=== PATIENT | female | born 1975 | race Two or more races ===

== ENCOUNTER 2019-07-02 17:50 | Emergency (ER) | payer MEDICARE, MEDICAID ==
[~2019-07-02] VITALS: Ht 170.2 cm; Wt 77.1 kg
[2019-07-02 17:49] VITALS: BP 124/79
[~2019-07-02 17:50] MED LIST: BACTRIM DS TAB1 EAC1 ORAL; IBUPROFEN600 MG ORAL; MOTRIN100 MG PO; NKM
--- NOTE | 2019-07-02 18:07 | Emergency Room Report ---
History of Present Illness General Chief Complaint: Upper Respiratory Illness Source: Patient Present Illness HPI 44-year-old female with no symptom past medical history here complaining of 4 days of cough and congestion and shortness of breath. Denies abdominal pain however complains of minor nausea. Denies diarrhea, headache and dizziness. Denies recent travel. Reports that she stopped working last Tuesday. Patient is a caregiver and works with elderly population. Is in no distress. Afebrile and oxygenation is are within normal limits. Denies at this time. Is sitting comfortably with stable vital signs. Allergies: Coded Allergies: No Known Allergies (Unverified , 04/18/12) COVID-19 Screening Contact w/high risk pt: No Recent Travel to affected area: No Experienced COVID-19 symptoms?: Yes COVID-19 symptoms experienced: Shortness of Breath, Cough Patient History Past Medical History: see triage record Past Surgical History: none Pertinent Family History: none Now: No Immunizations: UTD Reviewed Nursing Documentation: PMH: Agreed; PSxH: Agreed Nursing Documentation-PMH Past Medical History: No Stated History Hx Cardiac Problems: No Hx Hypertension: Yes Hx Cancer: No Hx Gastrointestinal Problems: No Hx Neurological Problems: No Review of Systems All Other Systems: negative except mentioned in HPI Physical Exam Vital Signs Date Time Temp Pulse Resp B/P (MAP) Pulse Ox O2 Delivery O2 Flow Rate FiO2 07/02/19 17:45 99.3 96 20 124/79 (94) 98 Room Air Sp02 EP Interpretation: reviewed, normal General Appearance: no apparent distress, alert, GCS 15, non-toxic Head: normocephalic, atraumatic Eyes: bilateral eye normal inspection, bilateral eye PERRL ENT: hearing grossly normal, normal pharynx, no angioedema, normal voice Neck: full range of motion, supple/symm/no masses Respiratory: chest non-tender, lungs clear, normal breath sounds, no wheezing, speaking full sentences Cardiovascular #1: regular rate, rhythm, no edema, no murmur, normal capillary refill Gastrointestinal: non tender, soft Rectal: deferred Genitourinary: no CVA tenderness Musculoskeletal: back normal Neurologic: alert, motor strength/tone normal, oriented x3, sensory intact, responsive, speech normal Psychiatric: judgement/insight normal, memory normal, mood/affect normal, no suicidal/homicidal ideation Skin: no rash Lymphatic: no adenopathy Medical Decision Making PA Attestation All my diagnosis and treatment plans were reviewed ad discussed with my supervising physician Dr. Vance Diagnostic Impression: Primary Impression: Upper respiratory infection ER Course 44-year-old female with no symptom past medical history here complaining of 4 days of cough and congestion and shortness of breath. Denies abdominal pain however complains of minor nausea. Denies diarrhea, headache and dizziness. Denies recent travel. Reports that she stopped working last Tuesday. Patient is a caregiver and works with elderly population. Is in no distress. Afebrile and oxygenation is are within normal limits. Denies at this time. Is sitting comfortably with stable vital signs. Ddx considered but are not limited to: Coronavirus , strep pharyngitis, URI, tonsillitis, peritonsillar abscess, influneza Vital signs: are WNL, pt. is afebrile H&PE are most consistent with: URI ORDERS: Chest x-ray, rapid influenza test, guaifenesin, albuterol, Tamiflu ED INTERVENTIONS: None required at this time. DISCHARGE: At this time pt. is stable for d/c to home. Will provide printed patient care instructions, and any necessary prescriptions. Care plan and follow up instructions have been discussed with the patient prior to discharge. Take medication as directed, follow-up with your primary doctor, you need to stay home for self quarantine due to Covid 19 precautions for 14 days Chest X-Ray Diagnostic Results Chest X-Ray Diagnostic Results : Chest X-Ray Ordered: Yes # of Views/Limited/Complete: 1 View Indication: Shortness of Breath EP Interpretation: Yes SLY Xray: Interpretation reviewed, by supervising MD, and agrees with findings. Interpretation: no consolidation, no effusion, no pneumothorax Impression: No acute disease Electronically Signed by: Batool Polo PA-C Last Vital Signs Date Time Temp Pulse Resp B/P (MAP) Pulse Ox O2 Delivery O2 Flow Rate FiO2 07/02/19 17:49 99.3 96 20 124/79 98 Room Air Disposition: HOME, SELF-CARE Condition: Stable Scripts Azithromycin* (ZITHROMAX*) 250 Mg Tablet 250 MG ORAL DAILY, #6 TAB 0 Refills Take two tables once daily for 1 day, then one tablet once daily for 4 days. Prov: Batool Wolfe 07/02/19 Albuterol Sulfate (VENTOLIN HFA) 18 Gm Hfa.aer.ad 2 PUFFS INH EVERY 6 HOURS, #18 GM 0 Refills Prov: Batool Wolfe 07/02/19 Guaifenesin* (GUAIFENESIN*) 100 Mg/5 Ml Liquid 15 ML ORAL Q8H, #120 ML 0 Refills Prov: Batool Wolfe 07/02/19 Oseltamivir Phosphate (Tamiflu) 75 Mg Capsule 75 MG ORAL TWICE A DAY for 5 Days, #10 CAP Prov: Batool Wolfe 07/02/19 Patient Instructions: Upper Respiratory Infection, Adult Additional Instructions: Take medication as directed, follow-up with your primary doctor, you need to stay home for self quarantine due to Covid 19 precautions for 14 days Batool Wolfe Jul 02, 2019 18:07
[2019-07-02] MEDS ORDERED: GUAIFENESI100 MG/5 M ORAL (18:28)
[2019-07-02] MEDS ORDERED: VENTOLIN HFA18 GM INH (18:28)
[2019-07-02] MEDS ORDERED: TAMIFLU75 MG ORAL (18:28)
[2019-07-02] MEDS ORDERED: ZITHROMAX250 MG ORAL (18:33)
[2019-07-02 18:50] VITALS: BP 124/79
--- NOTE | 2019-07-03 09:44 | Diagnostic Imaging Report ---
Indication: Cough Technique: One view of the chest Comparison: none Findings: Inspiration is suboptimal. The lungs and pleural spaces are clear. The heart size is normal. Impression: No acute process
== END 2019-07-02 18:50 | disposition home or self-care (01) ==
LOC: EDBD 17:50 → EMR 18:33
DX: J06.9 Acute upper respiratory infection, unspecified (principal); R06.02 Shortness of breath; I10 Essential (primary) hypertension
CPT/HCPCS: 71045; 86710; 99283